=== PATIENT | male | born 1970 | race Caucasian/White ===

== ENCOUNTER → 2016-05-29 | Outpatient (CLI) | payer BC | END | disposition home or self-care (01) | LOC: C.PATH 08:36 | PROVIDERS: ATTEND Internal Medicine | DX: R59.0 Localized enlarged lymph nodes (principal) ==

== ENCOUNTER → 2016-07-18 | Outpatient (CLI) | payer BC ==
[~2016-07-18] MED LIST: OPTIRAY 320 IV PRN
--- NOTE | 2016-07-18 13:43 | DIAGNOSTIC IMAGING REPORT ---
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 TECHNIQUE: Axial images of the neck were obtained following intravenous injection of 100 cc of Optiray 320 IV. COMPARISON STUDY: None. FINDINGS: Visualized portions of the intracranial contents are unremarkable. There are postsurgical findings consistent with resection of the superficial lobe of the right parotid gland. Slight infiltration within the operative bed is likely postsurgical. No mass or enlarged lymph node is identified within the operative bed. There is no cervical lymphadenopathy. The left parotid gland and the submandibular glands are normal. Lung apices are clear. There are no suspicious osseous abnormalities. There is mild tonsillar enlargement. No mucosal lesion is identified although these may be occult by CT. There is a small mucous retention cyst within the right maxillary sinus. Mastoid air cells are clear. A marker was placed on the skin at site of palpable abnormality, posterior to the right ear. There is a possible corresponding 1 cm fat attenuation lesion with internal septations. This could reflect the palpable abnormality. No other lesion is identified. IMPRESSION: 1. No cervical lymphadenopathy. No CT evidence of recurrent malignancy status post partial right parotidectomy. 2. 1 cm fat attenuation structure which contains thin septations which could reflect the palpable abnormality. The findings raise the possibility of a small lipoma which could be difficult to evaluate by CT. Electronically signed by: Doug Hills M.D. 07/18/2016 1:40 PM Dictated Date/Time: 07/18/2016 10:23 AM
== END | disposition home or self-care (01) ==
LOC: C.CTS 10:04
DX: Z00.00 Encounter for general adult medical examination without abnormal findings (principal); R59.0 Localized enlarged lymph nodes; R50.9 Fever, unspecified; M25.579 Pain in unspecified ankle and joints of unspecified foot; B35.9 Dermatophytosis, unspecified; Z12.5 Encounter for screening for malignant neoplasm of prostate; E78.5 Hyperlipidemia, unspecified; R73.01 Impaired fasting glucose; L29.9 Pruritus, unspecified

== ENCOUNTER → 2017-07-16 | Outpatient (CLI) | payer BC ==
[2017-07-16 12:42] LABS: BASO % 0.4 %; BASO ABS # 0.03 K/uL (0-0.2); EOS % 2.3 %; EOS ABS # 0.16 K/uL (0-0.5); HEMATOCRIT 44.2 % (42-52); HEMOGLOBIN 15.3 g/dL (14.0-18.0); IG# 0.04 K/uL (0.00-0.02); LYMPH % 19.9 %; LYMPH ABS # 1.41 K/uL (1.2-3.4); MEAN CELL VOLUME 89.5 fL (80-100); MEAN CORPUSCULAR HGB CONC 34.6 g/dl (32-36); MEAN PLATELET VOLUME 11.5 fL (7.4-10.4); MONO % 5.6 %; NEUT % 71.2 %; NEUT ABS # 5.06 K/uL (1.4-6.5); PLATELET COUNT 216 K/uL (130-400); RED CELL DISTRIBUTION WIDTH CV 13.4 % (11.5-14.5); RED CELL DISTRIBUTION WIDTH SD 43.8 fL (36.4-46.3)
[2017-07-16 13:08] LABS: ALBUMIN 4.2 gm/dl (3.4-5.0); ALT/SGPT 62 U/L (12-78); BLOOD UREA NITROGEN 12 mg/dl (7-18); CALCIUM 9.2 mg/dl (8.5-10.1); CARBON DIOXIDE 23 mmol/L (21-32); CHOLESTEROL 190 mg/dl (0-200); CREATININE 1.04 mg/dl (0.60-1.40); GLUCOSE 131 mg/dl (70-99); POTASSIUM 4.2 mmol/L (3.5-5.1); SODIUM 136 mmol/L (136-145)
[2017-07-16 13:11] LABS: ALKALINE PHOSPHATASE 99 U/L (45-117); AST/SGOT 27 U/L (15-37); LDL CHOLESTEROL CALCULATED 118 mg/dl; TOTAL PROTEIN 7.4 gm/dl (6.4-8.2)
[2017-07-16 13:12] LABS: HEMOGLOBIN A1C 6.4 % (4.5-5.6)
== END | disposition home or self-care (01) ==
LOC: C.LABBFT 08:28
PROVIDERS: ATTEND Physician Assistant Medical
DX: E78.5 Hyperlipidemia, unspecified (principal); R73.01 Impaired fasting glucose